=== PATIENT | female | born 1970 | race African-American/Black ===

== ENCOUNTER 2017-09-27 11:57 | Emergency (ER) | payer BC ==
[~2017-09-27] VITALS: Ht 165.1 cm; Wt 83.9 kg
[2017-09-27 11:57] VITALS: BP 148/86
[2017-09-27 13:21] LABS: APPEARANCE,URINE Clear (CLEAR); BILIRUBIN,URINE Negative (NEGATIVE); BLOOD, URINE Negative Ery/uL (NEGATIVE); COLOR,URINE Yellow (YELLOW); KETONES,URINE Negative (NEGATIVE); LEUKOCYTE ESTERASE ,URINE Negative (NEGATIVE); NITRITE, URINE Negative (NEGATIVE); PROTEIN,URINE Negative (NEGATIVE); UGLUCOSE Negative (NEGATIVE); UROBILINOGEN,URINE 0.2 EU/dL (0.2)
--- NOTE | 2017-09-27 14:22 | NUR ---
PT DC'D BY PA WITH ACI VERBALIZED UNDERSTANDING. LEFT DEM IN STABLE CONDITION STRONG STEADY GAIT.
== END 2017-09-27 14:27 | disposition home or self-care (01) ==
LOC: ER 12:02
DX: B37.3 Candidiasis of vulva and vagina (principal); K59.00 Constipation, unspecified; Z85.841 Personal history of malignant neoplasm of brain; Z91.013 Allergy to seafood
CPT/HCPCS: 81000-TC; 84703-TC; A4606; Z7610